=== PATIENT | female | born 1975 | race Two or more races ===

== ENCOUNTER 2024-09-02 12:55 | Emergency (ER) | payer OTHER ==
[~2024-09-02] VITALS: Ht 162.6 cm; Wt 78.0 kg
[2024-09-02] MEDS ORDERED: MECLIZINE HCL 25 MG TABLET PO STA (15:10)
[2024-09-02] MEDS ORDERED: ONDANSETRON HCL 2 MG/ML VIAL IM STA (15:11)
[2024-09-02 16:29] LABS: HEMATOCRIT 35.6 % (36.0-45.00); HEMOGLOBIN 12.2 g/dL (12.0-15.00); MEAN CELL VOLUME 79.1 fL (80.00-100.00); MEAN CORPUSCULAR HEMOGLOBIN 27.1 pg (27.00-32.0); MEAN CORPUSCULAR HGB CONC 34.2 g/dl (32.0-36.0); PLATELET COUNT 388 K/uL (150-450); RED CELL DISTRIBUTION WIDTH 14.1 % (11.5-14.5)
[2024-09-02 17:15] LABS: CALCIUM 9.7 mg/dL (8.5-10.1); CREATININE SERUM 0.71 mg/dL (0.55-1.02); GFR 86.79; POTASSIUM 4.96 mEq/L (3.5-5.1)
== END 2024-09-02 19:00 | disposition home or self-care (01) ==
LOC: ER 12:57
PROVIDERS: General Practice
DX: H81.10 Benign paroxysmal vertigo, unspecified ear (principal)